=== PATIENT | male | born 1990 | race African-American/Black ===

== ENCOUNTER 2019-02-23 16:07 | Emergency (ER) | payer OTHER ==
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
[2019-02-23 17:21] VITALS: BP 135/76
== END 2019-02-23 17:22 | disposition home or self-care (01) ==
LOC: ED 16:07
DX: T65.891A Toxic effect of other specified substances, accidental (unintentional), initial encounter (principal); H10.213 Acute toxic conjunctivitis, bilateral; Y92.9 Unspecified place or not applicable; Z87.891 Personal history of nicotine dependence
CPT/HCPCS: 99282